=== PATIENT | male | born 1985 | race Caucasian/White ===

== ENCOUNTER → 2016-08-26 | Outpatient (REF) | LOC: WSOH 09:05 | DX: Z01.83 Encounter for blood typing (principal) ==

== ENCOUNTER 2016-12-23 00:26 | Emergency (ER) | payer BC ==
[~2016-12-23] VITALS: Ht 188 cm; Wt 95.5 kg
[2016-12-23 00:28] VITALS: BP 126/73; TEMP 97.9
[2016-12-23 02:04] VITALS: PULSE 84
== END 2016-12-23 02:08 | disposition home or self-care (01) ==
LOC: COL.ER 00:26
DX: S80.12XA Contusion of left lower leg, initial encounter (principal); S81.812A Laceration without foreign body, left lower leg, initial encounter; W55.12XA Struck by horse, initial encounter; Y92.73 Farm field as the place of occurrence of the external cause

== ENCOUNTER → 2017-11-12 | Outpatient (CLI) | payer OTHER ==
[2017-11-12 10:18] LABS: BASO % 0.4 % (0.0-2.0); EOS # 0.1 (0.0-0.7); EOS % 1.5 % (0-4.0); GRAN # 2.9 (1.4-6.5); GRAN % 65.1 % (42.2-75.2); HEMATOCRIT 42.3 % (42.0-52.0); HEMOGLOBIN 14.4 g/dl (13.5-18.0); LYMPH # 0.7 (1.2-3.4); LYMPH % 16.3 % (20.0-51.0); MEAN CELL VOLUME 93 fl (80.0-100.0); MEAN CORPUSCULAR HEMOGLOBIN 32 pg (27.0-31.0); MEAN CORPUSCULAR HGB CONC 34 g/dl (33.0-37.0); MEAN PLATELET VOLUME 9.3 fl (7.4-10.4); MONO # 0.7 (0.1-0.6); MONO % 16.3 % (1.7-9.3); PLATELET COUNT 138 K/mm3 (130-400); RED BLOOD COUNT 4.53 M/mm3 (4.20-5.60); REDCELL DISTRIBUTION WIDTH-CV 12.4 % (11.5-14.5)
[2017-11-12 11:35] LABS: ERYTHROCYTE SEDIMENTATION RATE 67 mm/hr (0-15)
== END ==
LOC: COL.LAB 09:45
PROVIDERS: Physician Assistant Medical
DX: J18.1 Lobar pneumonia, unspecified organism (principal); R50.9 Fever, unspecified; Z20.9 Contact with and (suspected) exposure to unspecified communicable disease

== ENCOUNTER → 2017-11-12 | Outpatient (CLI) | payer BC | LOC: COL.LAB 09:36 | DX: J18.1 Lobar pneumonia, unspecified organism (principal); R50.9 Fever, unspecified; Z20.9 Contact with and (suspected) exposure to unspecified communicable disease ==